=== PATIENT | female | born 1960 | race Caucasian/White ===

== ENCOUNTER 2018-05-03 18:58 | Outpatient (CLI) | payer OTHER ==
--- NOTE | 2018-05-03 21:38 | Ultrasound Report ---
Procedure Date: 05/03/2018 Accession Number: [id number] / [id number] Procedure: US - Duplex Ext Veins Left CPT Code: FULL RESULT: EXAM: LEFT LOWER EXTREMITY VENOUS ULTRASOUND. EXAM DATE: 05/03/2018 07:30 PM. CLINICAL HISTORY: Thrombophlebitis. COMPARISON: None. TECHNIQUE: Real-time sonographic vascular imaging was performed by the engineer remote control diesel through the lower extremity utilizing both color-flow and Doppler spectral analysis. Multiple telecommunications sales representative static images were saved for review. FINDINGS: Common Femoral Vein (CFV): Normal. CFV-GSV Junction: Normal. Profunda Femoral Vein (PFV): Normal. Femoral Vein (FV) Prox: Normal. Femoral Vein (FV) Mid: Normal. Femoral Vein (FV) Dist: Normal. Popliteal Vein: Normal. Posterior Tibial Veins: Normal. Peroneal Veins: Normal. Contralateral Side CFV: Normal. Other: Small simple fluid collection in the deep soft tissues overlying the knee laterally measuring 2.6 x 0.4 x 0.5 cm. Additional simple fluid collection in the superficial soft tissues measuring 4.5 x 3.1 x 0.4 cm reportedly superior to the knee. No hyperemia or complexity at either site to strongly suggest abscess or hematoma. IMPRESSION: 1. No evidence for left lower extremity deep venous thrombosis. 2. Small simple fluid collections adjacent to the knee may represent fluid within bursa and/or bursitis. Recommend clinical correlation. [facility]
== END 2018-05-03 18:59 | disposition home or self-care (01) ==
LOC: DI 18:58
PROVIDERS: ATTEND Family Medicine
DX: I80.9 Phlebitis and thrombophlebitis of unspecified site (principal)

== ENCOUNTER 2018-05-18 11:52 | Outpatient (CLI) | payer OTHER ==
--- NOTE | 2018-05-18 13:59 | XRAY Report ---
Procedure Date: 05/18/2018 Accession Number: [id number] / [id number] Procedure: XR - Knee 2 View LT CPT Code: FULL RESULT: EXAM: Knee 2 View LT DATE: 05/18/2018 12:20 PM CLINICAL HISTORY: KNEE PAIN,LEFT COMPARISON: None. TECHNIQUE: 2 views. FINDINGS: The examination is limited by suboptimal lateral and AP views. Bones: Well-defined U shaped sclerotic line in the distal medial femoral condyle seen on the AP view is felt to be due to suboptimal positioning. No fracture is identified. Joints: No significant joint effusion is seen. Soft Tissues: Normal. No soft tissue swelling. IMPRESSION: Limited radiograph due to poor positioning, question well demarcated lytic lesion in the medial distal femoral condyle seen on the AP view only. Recommend the patient return for further images due to technical factors at no additional charge for study completion. An addendum will then be issued with additional findings. [facility]
== END 2018-05-18 11:53 | disposition home or self-care (01) ==
LOC: DI 11:52
PROVIDERS: ATTEND Physician Assistant Medical
DX: M25.562 Pain in left knee (principal)

== ENCOUNTER 2018-05-19 13:31 | Outpatient (CLI) | payer OTHER | END 2018-05-19 13:32 | disposition home or self-care (01) | LOC: DI 13:31 | PROVIDERS: ATTEND Physician Assistant Medical | DX: M25.562 Pain in left knee (principal) ==

== ENCOUNTER 2018-06-02 09:27 | Outpatient (CLI) | payer OTHER | END 2018-06-02 09:28 | disposition home or self-care (01) | LOC: DI.N 09:27 | PROVIDERS: ATTEND Radiology Diagnostic Radiology | DX: Z12.31 Encounter for screening mammogram for malignant neoplasm of breast (principal) | CPT/HCPCS: 77067 ==

== ENCOUNTER 2018-06-27 14:05 | Outpatient (CLI) | payer OTHER ==
[2018-06-27 19:01] LABS: BASOPHILS % (AUTO) 0.3 %; EOSINOPHILS # (AUTO) 0.1 10^3/uL (0.0-0.7); EOSINOPHILS % (AUTO) 2.2 %; HGB - HEMOGLOBIN 13.9 g/dL (12.0-16.0); LYMPHOCYTES # (AUTO) 2.6 10^3/uL (1.5-3.5); MEAN CORPUSCULAR HEMOGLOBIN 33.1 pg (27.0-31.0); MEAN CORPUSCULAR HGB CONC 35.4 g/dL (32.0-36.0); MEAN CORPUSCULAR VOLUME 93.3 fL (81.0-99.0); MEAN PLATELET VOLUME 8.6 fL (7.9-10.8); MONOCYTES # (AUTO) 0.5 10^3/uL (0.0-1.0); MONOCYTES % (AUTO) 7.4 %; NEUTROPHILS # (AUTO) 2.9 10^3/uL (1.5-6.6); NEUTROPHILS % (AUTO) 48.1 %; PLT - PLATELET COUNT 284 10^3/uL (130-450); RED CELL DISTRIBUTION WIDTH 11.9 % (12.0-15.0); WHITE BLOOD COUNT 6.1 x10^3/uL (4.8-10.8)
[2018-06-27 19:30] LABS: ALBUMIN 4.5 g/dL (3.2-5.5); ALBUMIN/GLOBULIN RATIO 1.7 (1.0-2.2); ALKALINE PHOSPHATASE 69 IU/L (42-121); ALT ALANINE AMINOTRANSFERASE 28 IU/L (10-60); AST ASPARTATE AMINOTRANSFERASE 22 IU/L (10-42); BUN - BLOOD UREA NITROGEN 10 mg/dL (6-20); CALCIUM 9.4 mg/dL (8.5-10.3); CARBON DIOXIDE - CO2 28 mmol/L (21-32); CHLORIDE 100 mmol/L (101-111); CHOL/HDL RATIO 4.3 (<4.4); CHOLESTEROL 235 mg/dL; CREATININE 0.6 mg/dL (0.4-1.0); GFR - MDRD 103 (>89); GLUCOSE 85 mg/dL (70-100); HDL CHOLESTEROL 55 mg/dL; LDL CHOLESTEROL,CALCULATED 147 mg/dL; LDL/HDL RATIO 2.7 (<4.4); SODIUM 136 mmol/L (135-145); TOTAL PROTEIN 7.1 g/dL (6.7-8.2); VLDL CHOLESTEROL 33 mg/dL
== END 2018-06-27 14:06 | disposition home or self-care (01) ==
LOC: LAB.WCP 14:05
PROVIDERS: ATTEND Physician Assistant Medical
DX: Z00.00 Encounter for general adult medical examination without abnormal findings (principal); E78.2 Mixed hyperlipidemia
CPT/HCPCS: 36415; 80053; 80061; 83721; 84443; 85025

== ENCOUNTER 2018-08-01 12:59 | Outpatient (CLI) | payer OTHER ==
--- NOTE | 2018-08-01 16:59 | MRI Report ---
Reason: KNEE PAIN,LEFT Procedure Date: 08/01/2018 Accession Number: [id number] / [id number] Procedure: MRI - Knee LT W/O CPT Code: FULL RESULT: EXAM: LEFT KNEE MRI WITHOUT CONTRAST. EXAM DATE: 08/01/2018 01:54 PM. CLINICAL HISTORY: Knee pain, left. COMPARISON: Knee 2 view lateral 05/19/2018 1:32 PM. TECHNIQUE: Multiplanar, multisequence T1-weighted and fluid-sensitive sequences of the knee without contrast. Other: None. FINDINGS: Bones: There are small foci of subchondral edema in the lateral patella facet. There is mild lateral subluxation of the patella. There are no visible fractures. Articular Cartilage: There is moderate thinning of the hyaline cartilage of the lateral patellar facet and the adjacent femoral trochlea. The findings raise a possibility of prior patellar dislocation or subluxation. Medial Meniscus: The medial meniscus is intact. Lateral Meniscus: The lateral meniscus is intact. Cruciate Ligaments: The anterior and posterior cruciate ligaments are intact. Collateral Ligaments: The medial collateral and lateral collateral ligamentous structures are intact. Tendons: Patella dana. The patella and quadriceps tendon are intact. Popliteus tendon appears normal. Musculature: No edema or fatty atrophy. Other: Moderate-sized joint effusion. No popliteal cyst. No loose bodies. The medial and lateral retinacula are intact. The subcutaneous tissues and fat pads are unremarkable. IMPRESSION: 1. 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 The findings suggest prior patellar dislocation. 2. Moderate-sized joint effusion. 3. Patella dana. [facility] MUSCULOSKELETAL RADIOLOGY SECTION ADDENDUM: 08/04/18 12:16 Compared with the prior plain x-rays of 05/19/2018, no abnormality of bone is seen in the medial femoral condyle. The bone appears normal.
== END 2018-08-01 13:00 | disposition home or self-care (01) ==
LOC: DI 12:59
PROVIDERS: ATTEND Physician Assistant Medical
DX: M17.12 Unilateral primary osteoarthritis, left knee (principal); S83.012A Lateral subluxation of left patella, initial encounter; M25.462 Effusion, left knee; M22.8X2 Other disorders of patella, left knee

== ENCOUNTER 2020-05-23 13:33 | Outpatient (CLI) | payer OTHER ==
--- NOTE | 2020-05-24 08:55 | XRAY Report ---
PROCEDURE: Foot 3 View LT INDICATIONS: LEFT FOOT PAIN TECHNIQUE: 3 views of the foot were acquired. COMPARISON: None FINDINGS: Bones: No fractures or dislocations. No suspicious bony lesions. Soft tissues: No tibiotalar joint effusion. Achilles tendon appears normal. IMPRESSION: No visualized acute fracture or dislocation. However, occult injury cannot be excluded. Recommend ghazala rt interval imaging follow-up in 7-10 days as clinically indicated for additional evaluation. Reviewed by: Nkechi Sotelo MD on 05/23/2020 4:34 PM PDT Approved by: Nkechi Sotelo MD on 05/23/2020 4:34 PM PDT Station ID: [id number]
== END 2020-05-23 23:59 ==
LOC: DI.WCP 13:33
PROVIDERS: ATTEND Nurse Practitioner Family
DX: M79.672 Pain in left foot (principal)

== ENCOUNTER 2020-06-06 12:28 | Outpatient (CLI) | payer OTHER ==
--- NOTE | 2020-06-06 16:02 | XRAY Report ---
PROCEDURE: Foot 2 View LT INDICATIONS: PAIN IN LEFT FOOT TECHNIQUE: 2 views of the foot were acquired. COMPARISON: None FINDINGS: Bones: No fractures or dislocations. No suspicious bony lesions. Mild enthesopathy at the Achilles tendon insertion. Soft tissues: No tibiotalar joint effusion. Achilles tendon appears normal. IMPRESSION: No acute or subacute fractures. Reviewed by: Amanda Cox MD on 06/06/2020 4:00 PM PDT Approved by: Amanda Cox MD on 06/06/2020 4:00 PM PDT Station ID: [id number]
== END 2020-06-06 12:29 | disposition home or self-care (01) ==
LOC: DI 12:28
PROVIDERS: ATTEND Nurse Practitioner Family
DX: M79.672 Pain in left foot (principal)

== ENCOUNTER 2020-08-19 13:20 | Outpatient (CLI) | payer OTHER ==
[2020-08-19 17:50] LABS: BASOPHILS % (AUTO) 0.4 %; EOSINOPHILS # (AUTO) 0.1 10^3/uL (0.0-0.7); EOSINOPHILS % (AUTO) 1.2 %; HGB - HEMOGLOBIN 13.8 g/dL (12.0-16.0); LYMPHOCYTES # (AUTO) 2.7 10^3/uL (1.5-3.5); LYMPHOCYTES % (AUTO) 36.1 %; MEAN CORPUSCULAR HEMOGLOBIN 31.4 pg (27.0-31.0); MEAN CORPUSCULAR HGB CONC 33.8 g/dL (32.0-36.0); MEAN CORPUSCULAR VOLUME 92.7 fL (81.0-99.0); MEAN PLATELET VOLUME 10.2 fL (7.9-10.8); MONOCYTES # (AUTO) 0.5 10^3/uL (0.0-1.0); MONOCYTES % (AUTO) 7.1 %; NEUTROPHILS # (AUTO) 4.1 10^3/uL (1.5-6.6); NEUTROPHILS % (AUTO) 54.9 %; PLT - PLATELET COUNT 329 10^3/uL (130-450); RED CELL DISTRIBUTION WIDTH 11.9 % (12.0-15.0); WHITE BLOOD COUNT 7.4 x10^3/uL (4.8-10.8)
[2020-08-19 18:06] LABS: ALBUMIN 4.5 g/dL (3.2-5.5); ALBUMIN/GLOBULIN RATIO 1.7 (1.0-2.2); ALKALINE PHOSPHATASE 92 IU/L (42-121); ALT ALANINE AMINOTRANSFERASE 24 IU/L (10-60); AST ASPARTATE AMINOTRANSFERASE 20 IU/L (10-42); BILIRUBIN,TOTAL 1.1 mg/dL (0.2-1.0); BUN - BLOOD UREA NITROGEN 12 mg/dL (6-20); CALCIUM 9.3 mg/dL (8.5-10.3); CARBON DIOXIDE - CO2 25 mmol/L (21-32); CHLORIDE 95 mmol/L (101-111); CHOL/HDL RATIO 4.8 (<4.4); CHOLESTEROL 258 mg/dL; CREATININE 0.6 mg/dL (0.4-1.0); GLUCOSE 91 mg/dL (70-100); HDL CHOLESTEROL 54 mg/dL; LDL CHOLESTEROL,CALCULATED 173 mg/dL; LDL/HDL RATIO 3.2 (<4.4); SODIUM 134 mmol/L (135-145); TOTAL PROTEIN 7.2 g/dL (6.7-8.2); VLDL CHOLESTEROL 31 mg/dL
== END 2020-08-19 23:59 | disposition home or self-care (01) ==
LOC: LAB.WCP 13:20
PROVIDERS: ATTEND Physician Assistant Medical
DX: Z00.00 Encounter for general adult medical examination without abnormal findings (principal); E78.2 Mixed hyperlipidemia; E55.9 Vitamin D deficiency, unspecified
CPT/HCPCS: 36415; 80053; 80061; 82306; 83721; 84443; 85025

== ENCOUNTER 2020-09-11 15:12 | Outpatient (CLI) | payer OTHER ==
--- NOTE | 2020-09-11 15:33 | XRAY Report ---
PROCEDURE: Hand 3 View BILAT INDICATIONS: PX IN R THUMB AND WRIST TECHNIQUE: 3 views of the hand(s) bilaterally acquired. COMPARISON: None FINDINGS: Bones: No fractures or dislocations. No suspicious bony lesions. The left index finger DIP joint h as osteophyte of the distal phalanx and a small erosion of the middle phalanx of the PIP joint on the radial side. The lunate has a 4 mm bone cyst. Soft tissues: No suspicious soft tissue calcifications. IMPRESSION: 1. No acute abnormality of the left or right hand. 2. Osteophyte and a small erosion seen on the oblique view of the left DIP joint, probably degenerati ve, versus less likely inflammatory arthropathy. 3. 4 mm bone cyst. Reviewed by: Aldair Haro on 09/11/2020 3:31 PM PST Approved by: Aldair Haro on 09/11/2020 3:31 PM [facility] Station ID: [id number]
== END 2020-09-11 23:59 | disposition home or self-care (01) ==
LOC: DI.N 15:12
PROVIDERS: ATTEND Physician Assistant
DX: M25.531 Pain in right wrist (principal); M85.642 Other cyst of bone, left hand; M25.742 Osteophyte, left hand

== ENCOUNTER 2020-11-05 14:25 | Emergency (ER) | payer OTHER ==
--- NOTE | 2020-11-05 14:41 | ED Physician Documentation ---
PD HPI CHEST PAIN - Stated complaint Stated Complaint: CHEST PX - History obtained from History obtained from: Patient - History of Present Illness Timing - onset: Enter time (0900), Today Timing - onset during: Light activity Timing - duration: Hours Timing - details: Abrupt onset, Still present, Waxing and waning Quality: Sharp, Pain Location: Substernal, Right chest Radiation: No: Jaw, Neck, Back, Abdominal, Left upper extremity, Right upper extremity Improved by: Nothing Worsened by: Other (nothing) Associated symptoms: Shortness of air. 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 She denies a component of pain with respiration but she notes the pain does come and go without ryhm or reason. Review of Systems Constitutional: denies: Fever Eyes: denies: Decreased vision Ears: denies: Ear pain Nose: denies: Congestion Throat: denies: Sore throat Cardiac: reports: Chest pain / pressure. denies: Palpitations Respiratory: denies: Dyspnea, Cough GI: denies: Abdominal Pain, Nausea, Vomiting : denies: Dysuria, Frequency Skin: denies: Rash Musculoskeletal: denies: Neck pain, Back pain Neurologic: denies: Generalized weakness, Focal weakness, Numbness PD PAST MEDICAL HISTORY - Past Medical History Cardiovascular: None, Hypertension Respiratory: None Endocrine/Autoimmune: None GI: None : None HEENT: Chronic vision loss Psych: None Musculoskeletal: None Derm: Rosacea - Past Surgical History General: Cholecystectomy /PATIENT COORDINATOR FRONT DESK: section, Tubal ligation, Hysterectomy HEENT: Tonsil/Adenoidectomy - Present Medications Home Medications: Ambulatory Orders Medication Instructions Recorded Confirmed No Known Home Medications 05/08/15 05/08/15 - Allergies Allergies/Adverse Reactions: Allergies Allergy/AdvReac Type Severity Reaction Status Date / Time prochlorperazine edisylate * Allergy Severe Anaphylaxis Verified 11/05/20 14:44 [From Compazine] PD ED PE NORMAL - Vitals Vital signs reviewed: Yes (hypertenisve ) - General General: Alert and oriented X 3, No acute distress, Well developed/nourished - HEENT HEENT: Atraumatic, PERRL, EOMI - Neck Neck: Supple, no meningeal sign, No bony TTP - Cardiac Cardiac: RRR, No murmur - Respiratory Respiratory: No respiratory distress, Clear bilaterally, Other (no chest wall tenderness) - Abdomen Abdomen: Normal bowel sounds, Soft, Non tender, Non distended, No organomegaly - Back Back: No CVA TTP, No spinal TTP - Derm Derm: Normal color, Warm and dry, No rash - Extremities Extremities: No deformity, No edema - Neuro Neuro: Alert and oriented X 3, 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, No motor deficit, No sensory deficit, Normal speech Eye Opening: Spontaneous Motor: Obeys Commands Verbal: Oriented GCS Score: 15 - Psych Psych: Normal mood, Normal affect Results - Vitals Vitals: Vital Signs - 24 hr 11/05/20 11/05/20 14:30 16:15 Temperature 36.5 C Heart Rate 88 76 Respiratory 18 15 Rate Blood Pressure 176/93 H 154/99 H O2 Saturation 98 100 Oxygen O2 Source Room air - EKG (time done) 1433 Rate: Rate (enter#) (78) Rhythm: NSR Ischemia: Normal ST segments Compare to prior EKG: Old EKG unavailable Computer interpretation: Agree with computer - Labs Labs: Laboratory Tests 11/05/20 11/05/20 11/05/20 15:12 15:12 15:12 WBC 6.5 RBC 4.18 L Hgb 13.5 Hct 39.1 MCV 93.5 MCH 32.3 H MCHC 34.5 RDW 12.1 Plt Count 318 MPV 9.4 Neut # (Auto) 3.3 Lymph # (Auto) 2.4 Mcpherson # (Auto) 0.5 Eos # (Auto) 0.2 Baso # (Auto) 0.0 Absolute Nucleated RBC 0.00 Nucleated RBC % 0.0 D-Dimer < 200.0 L Sodium 141 Potassium 3.6 Chloride 104 Carbon Dioxide 28 Anion Gap 9.0 BUN 13 Creatinine 0.6 Estimated GFR (MDRD) 102 Glucose 114 H Calcium 9.4 Total Bilirubin 0.5 AST 21 ALT 24 Alkaline Phosphatase 86 Troponin I High Sens Total Protein 7.2 Albumin 4.5 Globulin 2.7 Albumin/Globulin Ratio 1.7 Lipase 54 H 11/05/20 15:12 WBC RBC Hgb Hct MCV MCH MCHC RDW Plt Count MPV Neut # (Auto) Lymph # (Auto) Mcpherson # (Auto) Eos # (Auto) Baso # (Auto) Absolute Nucleated RBC Nucleated RBC % D-Dimer Sodium Potassium Chloride Carbon Dioxide Anion Gap BUN Creatinine Estimated GFR (MDRD) Glucose Calcium Total Bilirubin AST ALT Alkaline Phosphatase Troponin I High Sens < 2.3 L Total Protein Albumin Globulin Albumin/Globulin Ratio Lipase - Rads (name of study) chest Radiology: Prelim report reviewed (Impression: No acute cardiopulmonary process demonstrated radiographically.), EMP read indepedently, See rad report PD MEDICAL DECISION MAKING - ED course Complexity details: reviewed old records, reviewed results, re-evaluated patient, considered differential, d/w patient ED course: 60-year-old female with episodic right-sided chest wall pain without chest wall tenderness has no findings on x-ray or laboratory work electrocardiogram is normal troponin and D-dimer are normal physical exam is otherwise normal. I suspect her pain is from the chest wall and she is administered dexamethasone and Toradol and has improvement in her episodes and intensity. Departure - Departure Disposition: 01 Home, Self Care Clinical Impression: Atypical chest pain Condition: Stable Instructions: ED Chest Pain Atypical Unkn Cause Follow-Up: Kylah Lu PA-C [Primary Care Provider] -
[2020-11-05] MEDS ORDERED: CHERRY SYRUP 10 ML UDC PO ONE (14:55)
[2020-11-05] MEDS ORDERED: KETOROLAC 60 MG/2 ML VIAL IM STA (14:55)
[2020-11-05] MEDS ORDERED: DEXAMETHASONE 10 MG/ML VIAL PO STA (14:55)
[2020-11-05 15:22] LABS: BASOPHILS % (AUTO) 0.5 %; EOSINOPHILS # (AUTO) 0.2 10^3/uL (0.0-0.7); EOSINOPHILS % (AUTO) 3.5 %; HGB - HEMOGLOBIN 13.5 g/dL (12.0-16.0); LYMPHOCYTES # (AUTO) 2.4 10^3/uL (1.5-3.5); LYMPHOCYTES % (AUTO) 37.3 %; MEAN CORPUSCULAR HEMOGLOBIN 32.3 pg (27.0-31.0); MEAN CORPUSCULAR HGB CONC 34.5 g/dL (32.0-36.0); MEAN CORPUSCULAR VOLUME 93.5 fL (81.0-99.0); MEAN PLATELET VOLUME 9.4 fL (7.9-10.8); MONOCYTES # (AUTO) 0.5 10^3/uL (0.0-1.0); MONOCYTES % (AUTO) 8.2 %; NEUTROPHILS # (AUTO) 3.3 10^3/uL (1.5-6.6); NEUTROPHILS % (AUTO) 50.3 %; PLT - PLATELET COUNT 318 10^3/uL (130-450); RED BLOOD COUNT 4.18 10^6/uL (4.20-5.40); RED CELL DISTRIBUTION WIDTH 12.1 % (12.0-15.0); WHITE BLOOD COUNT 6.5 x10^3/uL (4.8-10.8)
--- NOTE | 2020-11-05 15:22 | XRAY Report ---
PROCEDURE: Chest 2 View X-Ray INDICATIONS: Right anterior chest pain TECHNIQUE: 2 view(s) of the chest. COMPARISON: None. FINDINGS: Surgical changes and devices: None. Lungs and pleura: No pleural effusions or pneumothorax. Lungs are clear. Mediastinum: Mediastinal contours are normal. Heart size is normal. Bones and chest wall: No suspicious bony abnormalities. Soft tissues appear unremarkable. IMPRESSION: No acute cardiopulmonary process demonstrated radiographically. Reviewed by: Luis Madera MD on 11/05/2020 3:20 PM PST Approved by: Luis Madera MD on 11/05/2020 3:20 PM PST Station ID: [id number]
[2020-11-05 15:34] LABS: ALBUMIN 4.5 g/dL (3.2-5.5); ALBUMIN/GLOBULIN RATIO 1.7 (1.0-2.2); BILIRUBIN,TOTAL 0.5 mg/dL (0.2-1.0); CALCIUM 9.4 mg/dL (8.5-10.3); CREATININE 0.6 mg/dL (0.4-1.0); TOTAL PROTEIN 7.2 g/dL (6.7-8.2)
[2020-11-05 17:22] VITALS: BP 145/80
== END 2020-11-05 16:55 | disposition home or self-care (01) ==
LOC: ED 14:25
DX: R07.89 Other chest pain (principal); I10 Essential (primary) hypertension
CPT/HCPCS: 36415; 71046; 80053; 83690; 84484; 85025; 85379; 93005; 96372; 99284; A9270